=== PATIENT | male | born 1990 | race Hispanic/Latino ===

== ENCOUNTER 2023-01-29 20:23 | Emergency (ER) | payer SELFPAY ==
[2023-01-29 21:15] LABS: Absolute Lymphocytes (CBC) 2.9 K/uL (0.7-4.9); Hematocrit 49.5 % (39.6-49.0); MCV 97.8 fL (80-100); MPV 8.7 fL (7.6-11.3); Platelets 208 thou/uL (152-406); RBC Red Blood Cell Count 5.06 M/uL (4.33-5.43)
[2023-01-29 21:31] LABS: Protime INR 0.95
[2023-01-29 21:48] LABS: ALT/SGPT 67 U/L (16-61); AST/SGOT 33 U/L (15-37); Albumin 3.3 g/dL (3.4-5.0); Alkaline Phosphatase 82 U/L (45-117); BUN Blood Urea Nitrogen 7 mg/dL (7-18); Bicarbonate 23 mEq/L (21-32); Bilirubin Direct 0.1 mg/dL (0-0.2); Bilirubin Indirect, Calculated 0.1 mg/dL (0.2-0.8); Bilirubin Total 0.2 mg/dL (0.2-1.0); Glomerular Filtration Rate 112 ml/min (=/>90); Glucose Level 134 mg/dL (74-106); Potassium 3.5 mEq/L (3.5-5.1); Protein, Total 7.6 g/dL (6.4-8.2); Sodium Level 141 mEq/L (136-145)
[2023-01-29] MEDS ORDERED: NICOTINE 21 MG/PAT TD ONE (22:15)
--- NOTE | 2023-01-29 22:55 | ER ---
Nurse's Notes [facility] Name: Joseph De Luna Age: 32 yrs Sex: Male : 1990 Arrival Date: 01/29/2023 Time: 20:23 Bed 18 Private MD: Diagnosis: Other depressive episodes;Alcohol abuse with intoxication Presentation: 01/29 20:24 Chief complaint: Patient states: Suicidal ideations with thoughts of cutting his pf1 wrists,onset 2 weeks. Patient stated has been feeling depressed, lonely and stressed out with life issues. Patient stated has been drinking alcohol today. Patient denies any hallucinations. Patient stated has a son and does not want to end his life, but still keeps having this thoughts of suicidal ideations. 20:24 Coronavirus screen: Vaccine status: Patient reports being unvaccinated. Client denies pf1 travel out of the [place] in the last 14 days. At this time, the client does not indicate any symptoms associated with coronavirus-19. Ebola Screen: Patient negative for fever greater than or equal to 101.5 degrees Fahrenheit, and additional compatible Ebola Virus Disease symptoms. Initial Sepsis Screen: Does the patient meet any 2 criteria? HR > 90 bpm. No. Patient's initial sepsis screen is negative. Does the patient have a suspected source of infection? No. Patient's initial sepsis screen is negative. Risk Assessment: Do you want to hurt yourself or someone else? Patient reports desire/thoughts of hurting themselves or someone else. Provider notified. 20:24 Method Of Arrival: EMS: [facility] 1 20:24 Acuity: ALPHONSO 2 pf1 01/30 07:22 Onset of symptoms is unknown. ld1 07:22 Onset of symptoms is unknown. ld1 Triage Assessment: 01/29 20:30 General: Appears in no apparent distress. Behavior is calm, cooperative, appropriate bp for age. Pain: Denies pain. Historical: - Allergies: 20:35 No Known Allergies; pf1 - PMHx: 20:35 Hypertensive disorder; pf1 - PSHx: 20:35 Appendectomy; pf1 - Immunization history:: Adult Immunizations up to date, Client reports having NOT received the Covid vaccine. Last tetanus immunization: < 5 years ago Flu vaccine is not up to date. - Social history:: Smoking status: Patient reports the use of cigarette tobacco products, smokes one-half pack cigarettes per day, Patient uses alcohol, occasionally. Patient/guardian denies using street drugs. Screenin:30 [facility] ED Fall Risk Assessment (Adult) History of falling in the last 3 months, bp including since admission No falls in past 3 months (0 pts). Abuse screen: Denies threats or abuse. Denies injuries from another. Nutritional screening: No deficits noted. Tuberculosis screening: No symptoms or risk factors identified. Assessment: 20:30 General: SEE TRIAGE NOTE. bp 21:37 General: PT DC OWN PIV. bp 21:40 Reassessment: PT CALMLY STATING HE WISHES TO LEAVE. AO4, AMBULATORY WITH STEADY GAIT, bp DENYING SI. FRIEND AND MD STATE PT IS STILL SI. PT REMAINS CALM AND COOPERATIVE, RETURNING TO ROOM ON REQUEST. 21:58 Reassessment: [facility] AT B/S, PER MD REQUEST. bp 22:30 Reassessment: PT REORIENTED BY AMANDA CONNOR, KAYODE ON FILE BY AMANDA CONNOR. PT AGREEABLE TO bp REMAIN FOR PSYCH EVAL AFTER MED CLEARANCE. 01/30 01:00 Reassessment: Patient appears in no apparent distress at this time. Patient is alert, bp oriented x 3, equal unlabored respirations, skin warm/dry/pink. 03:00 Reassessment: Patient appears in no apparent distress at this time. Patient is alert, bp oriented x 3, equal unlabored respirations, skin warm/dry/pink. 06:02 Reassessment: [facility] Notified to have patient screened. Will call back with an ETA. pf1 06:40 Reassessment: PT ON WITH [facility] [employer]. bp 07:22 Reassessment: patient states he has no desire or plan to harm or kill himself or ld1 others.. Pain: Denies pain. Neuro: Level of Consciousness is awake, alert, obeys commands, Oriented to person, place, time, situation. Cardiovascular: Capillary refill < 3 seconds Thorax. Respiratory: Airway is patent Respiratory effort is even, unlabored, Respiratory pattern is regular, symmetrical. Psych: 07:22 [place] Suicide Severity Screening: In the past month, have you wished you were ld1 or wished you could go to sleep and not wake up? Patient responds "No." "In the past month, have you actually had any thoughts of killing yourself?" Patient responds "no." "In your lifetime, have you ever done anything, started to do anything, or prepared to do anything to end your life?" Patient responds "no.". Subjective: Delusions are denied, Hallucinations are denied. Objective: Patient is cooperative, Speech is normal, Affect is appropriate. Interventions: completed on operational meteorologist. Safety Checks: completed on operational meteorologist. Pt denies substance abuse. Commitment: not completed at time of admission. Vital Signs: 01/29 20:24 BP 143 / 86; Pulse 104; Resp 20; Temp 97.8; Pulse Ox 97% on R/A; Weight 106.59 kg; pf1 Height 5 ft. 9 in. ; Pain 0/10; 20:24 Body Mass Index 34.70 (106.59 kg, 175.26 cm) pf1 20:24 Pain Scale: Adult pf1 ED Course: 20:24 Patient arrived in ED. ms3 20:24 Denver Abad DO is Attending Physician. ms3 20:25 Russ Samuels, TIMBO is Primary Nurse. bp 20:30 Arm band placed on. bp 20:30 Patient has correct armband on for positive identification. Bed in low position. Call bp light in reach. 20:35 Triage completed. pf1 21:10 Inserted saline lock: 20 gauge in right antecubital area, using aseptic technique. oe Blood collected. 21:37 IV discontinued, intact, bleeding controlled, No redness/swelling at site. Pressure bp dressing applied. 01/30 05:45 Inserted saline lock: 22 gauge in right hand, using aseptic technique. oe 05:50 reached out to [facility] for evaluation. [id number] 06:33 connected [facility] from [facility] for patient screener. eb 07:17 Matias Hyatt MD is Referral Physician. ms3 07:22 No provider procedures requiring assistance completed. IV discontinued, intact, ld1 bleeding controlled, No redness/swelling at site. Pressure dressing applied. 07:22 Provided Education on: Safety plan reviewed with patient.. ld1 Administered Medications: No medications were administered Medication: 01/29 20:30 VIS not applicable for this client. bp Outcome: 22:54 ER care complete, transfer ordered by . ms3 01/30 07:17 Discharge ordered by . ms3 07:22 Discharged to home with friend, ld1 07:22 Condition: stable ld1 07:22 Discharge instructions given to patient, Instructed on discharge instructions, follow up and referral plans. Demonstrated understanding of instructions, follow-up care, 07:30 Patient left the ED. ld1 Signatures: Rl Flor Brian, RN RN Heather Ma Marcus, DO DO ms3 Kendal Abad RN RN ld1 [place] RN RN pf1 Marcia Stark 12
--- NOTE | 2023-01-29 22:55 | EDPHYS ---
Physician Documentation [facility] Name: Joseph De Luna Age: 32 yrs Sex: Male : 1990 Arrival Date: 01/29/2023 Time: 20:23 Bed 18 Private MD: ED Physician Denver Abad HPI: 01/29 21:18 This 32 yrs old Male presents to ER via EMS with complaints of Psych Problem. ms3 21:18 32-year-old male with past medical history of hypertension presents to the emergency ks3 department for suicidal ideations. Patient states he has had thoughts of suicide for years. Patient denies plan of suicide. Patient denies nausea, vomiting, pain, homicidal ideations, hallucinations. Patient denies taking any medications. Patient states he drank 1 L of vodka and 2 beers today. Patient denies use of recreational drugs. Historical: - Allergies: 20:35 No Known Allergies; pf1 - PMHx: 20:35 Hypertensive disorder; pf1 - PSHx: 20:35 Appendectomy; pf1 - Immunization history:: Adult Immunizations up to date, Client reports having NOT received the Covid vaccine. Last tetanus immunization: < 5 years ago Flu vaccine is not up to date. - Social history:: Smoking status: Patient reports the use of cigarette tobacco products, smokes one-half pack cigarettes per day, Patient uses alcohol, occasionally. Patient/guardian denies using street drugs. ROS: 21:18 Constitutional: Negative for fever, and chills. Neck: Negative for injury, pain, and ms3 swelling, Cardiovascular: Negative for chest pain, and palpitations. Respiratory: Negative for shortness of breath, cough, wheezing, and pleuritic chest pain, Abdomen/GI: Negative for abdominal pain, nausea, vomiting, diarrhea, and constipation, MS/Extremity: Negative for injury and deformity, Skin: Negative for injury, rash, and discoloration, 21:18 All other systems are negative, Exam: 21:18 Constitutional: This is a well developed, well nourished patient who is awake, alert, ms3 and in no acute distress. Head/Face: Normocephalic, atraumatic. Eyes: Pupils equal round and reactive to light, extra-ocular motions intact. Lids and lashes normal. Conjunctiva and sclera are non-icteric and not injected. Periorbital areas with no swelling, redness, or edema. ENT: Nares patent. No nasal discharge, no septal abnormalities noted. Tympanic membranes are normal and external auditory canals are clear. Oropharynx with no redness, swelling, or masses, exudates, or evidence of obstruction, uvula midline. Mucous membranes moist. Chest/axilla: Normal chest wall appearance and motion. Nontender with no deformity. Cardiovascular: Regular rate and rhythm with a normal S1 and S2. No gallops, murmurs, or rubs. Normal PMI, no JVD. No pulse deficits. Respiratory: Lungs have equal breath sounds bilaterally, clear to auscultation and percussion. No rales, rhonchi or wheezes noted. No increased work of breathing, no retractions or nasal flaring. Abdomen/GI: Soft, non-tender, with normal bowel sounds. No distension or tympany. No guarding or rebound. No evidence of tenderness throughout. Skin: Warm, dry with normal turgor. Normal color with no rashes, no lesions, and no evidence of cellulitis. MS/ Extremity: Pulses equal, no cyanosis. Neurovascular intact. Full, normal range of motion. Neuro: Awake and alert, GCS 15, oriented to person, place, time, and situation. Cranial nerves II-XII grossly intact. Motor strength 5/5 in all extremities. Sensory grossly intact. Cerebellar exam normal. Normal gait. 21:18 Psych: Behavior/mood is pleasant, cooperative, Affect is calm, Oriented to person, place, time, Patient having thoughts of suicide. Denies suicidal plan. Judgement / Insight is normal. Memory is normal. 21:28 ECG was reviewed by the Attending Physician. ms3 Vital Signs: 20:24 BP 143 / 86; Pulse 104; Resp 20; Temp 97.8; Pulse Ox 97% on R/A; Weight 106.59 kg; pf1 Height 5 ft. 9 in. ; Pain 0/10; 20:24 Body Mass Index 34.70 (106.59 kg, 175.26 cm) pf1 20:24 Pain Scale: Adult pf1 MDM: 20:24 Patient medically screened. ms3 21:18 Differential diagnosis: acute psychotic break, depression. ms3 23:48 Data reviewed: vital signs, nurses notes, lab test result(s), EKG, and as a result, I ms3 will Transfer patient. Consideration of Admission/Observation We will transfer patient. Independent interpretation of the following test(s) in the Emergency Department EKG: See my EKG interpretation above. Historians other than the Patient: EMS: [facility]. Care significantly affected by the following Social Determinants of Health: Poor access to healthcare and/or lack of insurance. Counseling: I had a detailed discussion with the patient and/or guardian regarding the historical points, exam findings, and any diagnostic results supporting the discharge/admit diagnosis, lab results, the need to transfer to another facility, [facility] does not immediately have the required specialist. ED course: Patient with alcohol intoxication at this time. Will wait for alcohol level to downtrend and consult glucose for placement.. 01/29 20:25 Order name: Acetaminophen; Complete Time: 22:53 ms3 01/29 20:25 Order name: Basic Metabolic Panel; Complete Time: 22:53 ms3 01/29 20:25 Order name: CBC with Diff; Complete Time: 22:53 ms3 01/29 20:25 Order name: ETOH Level; Complete Time: 22:53 ms3 01/29 20:25 Order name: Hepatic Function; Complete Time: 22:53 ms3 01/29 20:25 Order name: PT-INR; Complete Time: 22:53 ms3 01/29 20:25 Order name: Ptt, Activated; Complete Time: 22:53 ms3 01/29 20:25 Order name: Salicylate; Complete Time: 22:53 ms3 01/29 20:25 Order name: Urine Drug Screen; Complete Time: 01:51 ms3 01/30 05:19 Order name: ETOH Level pf1 01/29 20:25 Order name: EKG; Complete Time: 20:26 ms3 01/29 20:25 Order name: EKG - Nurse/Tech; Complete Time: 21:17 ms3 01/29 20:25 Order name: IV Saline Lock; Complete Time: 21:17 ms3 01/29 20:25 Order name: Labs collected and sent; Complete Time: 21:17 ms3 01/29 20:25 Order name: Suicide Precautions; Complete Time: 20:28 ms3 01/29 20:25 Order name: Suicide Screening ([place]); Complete Time: 20:28 ms3 EC:28 Rate is 106 beats/min. Rhythm is regular. QRS [place] is Normal. IN interval is normal. ms3 QRS interval is normal. Clinical impression: Sinus tachycardia. Interpreted by me. Reviewed by me. Administered Medications: No medications were administered Disposition Summary: 01/30/23 07:17 Discharge Ordered Notes: Location: Home ms3 Condition: Stable(01/30/23 07:17) ms3 Diagnosis - Other depressive episodes(01/30/23 07:17) ms3 - Alcohol abuse with intoxication(01/30/23 07:17) ms3 Followup: ms3 - With: Matias Hyatt MD - When: 1 - 2 days - Reason: Recheck today's complaints Discharge Instructions: - Discharge Summary Sheet ms3 - Alcohol Intoxication ms3 - Suicidal Feelings: How to Help Yourself ms3 - Helping Someone Who is Suicidal ms3 Forms: - Medication Reconciliation Form ms3 - Thank You Letter ms3 - Antibiotic Education ms3 - Prescription Opioid Use ms3 - Patient Portal Instructions ms3 - Leadership Thank You Letter ms3 Signatures: Dispatcher [employer] EDMS Denver Abad DO DO ms3 [place] RN RN pf1 Corrections: (The following items were deleted from the chart) 01/30 07:17 01/29 22:54 Dr ms3 ms3 01/30 07:17 01/29 22:54 Psych Facility ms3 ms3 01/30 07:17 01/29 22:54 Higher level of care ms3 ms3 01/30 07:17 01/29 22:54 Stable ms3 ms3 01/30 07:17 01/29 22:54 new ms3 ms3 01/30 07:17 01/29 22:54 are unchanged ms3 ms3 01/30 07:17 01/29 22:54 Suicidal ideations ms3 ms3 01/30 07:17 01/29 22:54 Other depressive episodes ms3 ms3 01/30 07:17 01/29 22:54 Alcohol abuse with intoxication ms3 ms3
[2023-01-30 01:50] LABS: Barbiturates NEGATIVE (NEGATIVE); Benzodiazepines NEGATIVE (NEGATIVE); Cocaine NEGATIVE (NEGATIVE); METHAMPHETAM NEGATIVE (NEGATIVE); Methadone NEGATIVE (NEGATIVE); Opiates NEGATIVE (NEGATIVE); Phencyclidine NEGATIVE (NEGATIVE); THC Cannibis POSITIVE (NEGATIVE)
[2023-01-30 07:58] VITALS: BP 143/86; TEMP 97.8; O2SAT 97
--- NOTE | 2023-02-02 17:35 | EKG ---
Test Date: 2023-01-29 Test Time: 20:56:04 Finger Lift Operator: ARIK MEASUREMENT RESULTS: Intervals: Rate: 106 IL: 144 QRSD: 88 QT: 340 QTc: 451 [place]: P: 65 IL: 144 QRS: 47 T: 37 INTERPRETIVE STATEMENTS: Sinus tachycardia Otherwise normal ECG No previous ECG available for comparison Electronically Signed On 02-02-23 17:25:56 [employer] by Sergio Padgett
== END 2023-01-30 07:30 | disposition home or self-care (01) ==
LOC: ER 20:23
DX: F32.89 Other specified depressive episodes (principal); F10.129 Alcohol abuse with intoxication, unspecified; F17.210 Nicotine dependence, cigarettes, uncomplicated
CPT/HCPCS: 36415; 80048; 80076; 80143; 80179; 80307; 82077; 85025; 85610; 85730; 93005; 99284

== ENCOUNTER 2023-06-22 01:11 | Emergency (ER) | payer SELFPAY ==
[2023-06-22 02:20] LABS: PT Prothrombin Time 10.8 SECONDS (9.5-12.5); PTT, Activated Partial Thromb 32.8 SECONDS (24.3-36.9); Protime INR 0.98
[2023-06-22 02:27] LABS: Barbiturates NEGATIVE (NEGATIVE); Benzodiazepines NEGATIVE (NEGATIVE); Cocaine NEGATIVE (NEGATIVE); METHAMPHETAM NEGATIVE (NEGATIVE); Methadone NEGATIVE (NEGATIVE); Opiates NEGATIVE (NEGATIVE); Phencyclidine NEGATIVE (NEGATIVE); THC Cannibis POSITIVE (NEGATIVE)
[2023-06-22 02:28] LABS: Absolute Eosinophils 0.3 K/uL (0-0.5); Absolute Lymphocytes (CBC) 1.7 K/uL (0.7-4.9); Absolute Monocytes 0.9 K/uL (0.1-1.3); Absolute Neutrophil 8.6 K/uL (1.8-8.0); Basophils % 0.3 % (0-1.3); Eosinophils % 2.9 % (0-4.4); Hemoglobin 17.1 g/dL (13.6-17.9); Lymphocytes % 14.9 % (15.3-44.8); MCHC 34.9 g/dL (32.0-36.0); MCV 97.2 fL (80-100); MPV 8.9 fL (7.6-11.3); Monocytes % 7.7 % (3.3-12.3); Neutrophils % 74.2 % (41.7-73.7); Platelets 250 thou/uL (152-406); RBC Red Blood Cell Count 5.04 M/uL (4.33-5.43); Red Cell Distribution Width 12.1 % (12.1-15.2)
[2023-06-22 02:51] LABS: ALT/SGPT 108 U/L (16-61); AST/SGOT 35 U/L (15-37); Albumin 3.4 g/dL (3.4-5.0); Albumin/Globulin Ratio 0.8 (1.1-1.8); Alkaline Phosphatase 73 U/L (45-117); Anion Gap 10.8 mEq/L (5.0-15.0); BUN Blood Urea Nitrogen 11 mg/dL (7-18); Bicarbonate 20 mEq/L (21-32); Bilirubin Total 0.3 mg/dL (0.2-1.0); Globulin 4.1 g/dL (2.3-3.5); Glomerular Filtration Rate 111 ml/min (=/>90); Glucose Level 117 mg/dL (74-106); Potassium 3.8 mEq/L (3.5-5.1); Protein, Total 7.5 g/dL (6.4-8.2); Sodium Level 137 mEq/L (136-145)
[2023-06-22 02:52] LABS: Bilirubin Direct < 0.1 mg/dL (0-0.2); Bilirubin Indirect, Calculated ND mg/dL (0.2-0.8)
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
[2023-06-22 06:24] VITALS: BP 155/93; TEMP 98; O2SAT 95
== END 2023-06-22 05:52 | disposition home or self-care (01) ==
LOC: ER 01:11
DX: F10.929 Alcohol use, unspecified with intoxication, unspecified (principal); F12.10 Cannabis abuse, uncomplicated
CPT/HCPCS: 36415; 80048; 80076; 80143; 80179; 80307; 82077; 85025; 85610; 85730